=== PATIENT | female | born 1970 | race Caucasian/White ===

== ENCOUNTER 2017-06-19 18:44 | Emergency (ER) | payer BC ==
[2017-06-19] MEDS ORDERED: Acetaminophen 500 MG TAB ONE (19:39)
--- OUTSIDE RECORDS SUMMARY | 2017-06-21 12:33 | XMS | Clinical Summary ---
:1970 Author Organization [facility] Address [address] [place] [address] Phone Care Team Providers Name Role Phone , Primary Care Provider Unavailable Allergies Not on File Current Medications Not on file Active Problems Not on file Social History Tobacco Use Types Packs/Day Years Used Date Never Assessed Sex Assigned at Date Recorded Not on file Last Filed Vital Signs Not on file Plan of Treatment Not on file Results Not on filefrom Last 3 Months
--- OUTSIDE RECORDS SUMMARY | 2017-06-21 12:33 | XMS | Clinical Summary ---
:1970 Author Organization [facility] Address [address] [place] [address] Phone Care Team Providers Name Role Phone , Primary Care Provider Unavailable Allergies Active Allergy Reactions Severity Noted Date Comments Iodinated Contrast- Oral And Iv Dye 12/09/2015 Current Medications Prescription Sig. Disp. Refills Start Date End Date Status estradiol (VIVELLE-DOT) Place 1 patch onto 11/22/2015 Active 0.075 mg/24 hr patch the skin twice a week Sunday and . zonisamide (ZONEGRAN) 100 11/22/2015 Active MG capsule Active Problems Problem Noted Date Other chest pain 12/10/2015 Migraine headache Social History Tobacco Use Types Packs/Day Years Used Date Never Smoker Alcohol Use Drinks/Week oz/Week Comments No Sex Assigned at Date Recorded Not on file Last Filed Vital Signs Vital Sign Reading Time Taken Blood Pressure 100/54 12/10/2015 3:36 PM CDT Pulse 65 12/10/2015 3:36 PM CDT Temperature 36.2 C (97.1 F) 12/09/2015 9:15 PM CDT Respiratory Rate 18 12/10/2015 3:36 PM CDT Oxygen Saturation 100% 12/10/2015 3:36 PM CDT Inhaled Oxygen Concentration - - Weight 70.3 kg (155 lb) 12/09/2015 9:15 PM CDT Height 177.8 cm (5' 10") 12/09/2015 9:15 PM CDT Body Mass Index 22.24 12/09/2015 9:15 PM CDT Plan of Treatment Not on file Results Not on filefrom Last 3 Months
== END 2017-06-19 19:48 | disposition home or self-care (01) ==
LOC: SCSER 18:44
DX: F07.81 Postconcussional syndrome (principal); G43.909 Migraine, unspecified, not intractable, without status migrainosus
CPT/HCPCS: 99284